=== PATIENT | male | born 1960 | race Caucasian/White ===

== ENCOUNTER 2022-11-05 16:57 | Inpatient (IN) | payer MEDICARE, OTHER, SELFPAY ==
[~2022-11-05] VITALS: Ht 185.4 cm; Wt 59.6 kg
[2022-11-05] MEDS ORDERED: ALBUTEROL SULFATE 2.5MG/0.5ML INH NEB SOLN INH ONE (17:15)
[2022-11-05] MEDS ORDERED: IPRATROPIUM 0.5MG/ALBUTEROL 2.5MG INH SOL UD 3ML (DUONEB) NEB ONE (17:15)
[2022-11-05] MEDS ORDERED: methylPREDNISolone 125MG 2ML VIAL IV ONE (17:15)
[2022-11-05 17:25] LABS: ABG BASE EXCESS -0.4 (-2.0-2.0); ABG HCO3 23.2 MMOL/L (22.0-26.0); ABG O2 SATURATION 96.3 % (95.0-99.0); ABG PARTIAL PRESSURE CO2 34.9 mmHg (35.0-45.0); ABG PARTIAL PRESSURE O2 84.5 mmHg (75.0-100.0); ABG STANDARD HCO3 24.1 MMOL/L. (22.0-26.0); ABG TOTAL CO2 24.2 MMOL/L (23.0-31.0)
[2022-11-05] MEDS: MAG SULF 1GM/100ML (MAG RUN) 1 GM in IV 1 EA IV SCH ×2 (17:37→18:14)
[2022-11-05 17:51] LABS: BASO % 0.3 % (0.0-1.0); EOS # 0.1 10^3/uL (0.0-0.5); EOS % 0.3 % (0.0-3.0); HEMATOCRIT 38.3 % (42.0-52.0); HEMOGLOBIN 12.4 g/dl (13.5-17.5); LYMPH % 6.5 % (24.0-44.0); MEAN CORPUSCULAR HEMOGLOBIN 28.8 pg (27.0-33.0); MEAN CORPUSCULAR HGB CONC 32.4 g/dl (32.0-36.5); MEAN CORPUSCULAR VOLUME 88.9 fl (80.0-96.0); MONO % 6.3 % (2.0-8.0); NEUTROPHILS # 13.7 10^3/uL (1.5-8.5); NEUTROPHILS % 86.2 % (36.0-66.0); PLATELET COUNT, AUTOMATED 346 10^3/uL (150-450); RED BLOOD COUNT 4.31 10^6/uL (4.30-6.10); WHITE BLOOD COUNT 15.9 10^3/uL (4.0-10.0)
[2022-11-05 18:04] LABS: CK-MB VALUE MASS 1.1 NG/ML (<3.6)
[2022-11-05 18:07] LABS: ALBUMIN 3.6 G/DL (3.2-5.2); ALKALINE PHOSPHATASE 114 U/L (46-116); ALT/SGPT 10 U/L (7.0-40); AST/SGOT 10 U/L (<34); BILIRUBIN,DIRECT 0.2 MG/DL (<0.4); BILIRUBIN,TOTAL 0.6 MG/DL (0.3-1.2); BLOOD UREA NITROGEN 8 MG/DL (9-23); CALCIUM LEVEL 9.1 MG/DL (8.3-10.6); CARBON DIOXIDE LEVEL 25 MMOL/L (20-31); CHLORIDE LEVEL 95 MMOL/L (98-107); CPK CREATINE PHOSPHOKINASE 34 U/L (46-171); CREATININE FOR GFR 0.61 MG/DL (0.70-1.30); GLOMERULAR FILTRATION RATE > 60.0 (>49); GLUCOSE, FASTING 128 MG/DL (74-106); MB/CK RELATIVE INDEX 3.23 (< OR =4); POTASSIUM SERUM 3.8 MMOL/L (3.5-5.1); SODIUM LEVEL 131 MMOL/L (136-145); TOTAL PROTEIN 6.7 G/DL (5.7-8.2)
[2022-11-05 18:09] LABS: THYROID STIMULATING HORMONE 0.103 uIU/ML (0.55-4.78); THYROXINE (T4) 11.8 UG/DL (4.5-10.9)
[2022-11-05 18:13] LABS: PROCALCITONIN 0.62 ng/ml
[2022-11-05] MEDS ORDERED: NS 2,050 ML in IV 1 EA IV ONE (18:25)
[2022-11-05] MEDS ORDERED: cefTRIAXone SOD 2 GM in D5W MINI-BAG PLUS 50 ML IV ONE (18:25)
[2022-11-05 18:32] LABS: INR 1.03; PROTHROMBIN TIME 13.7 SECONDS (12.5-14.5)
[2022-11-05] MEDS ORDERED: IPRATROPIUM 0.5MG/ALBUTEROL 2.5MG INH SOL UD 3ML (DUONEB) NEB PRN (20:05)
[2022-11-05] MEDS ORDERED: PANT20TA6 PO (20:28)
[2022-11-05] MEDS ORDERED: TRAZ1TAB14 PO (20:28)
[2022-11-05] MEDS ORDERED: METO25TA4 PO (20:28)
[2022-11-05] MEDS ORDERED: ALBU8.5H INH (20:28)
[2022-11-05] MEDS ORDERED: BREO1INH PO (20:28)
[2022-11-05] MEDS ORDERED: MELA3TAB30 PO (20:28)
[2022-11-05] MEDS ORDERED: LISI10TA22 PO (20:28)
[2022-11-05] MEDS ORDERED: HOME MED LIST COMPLETE! XX SCH (20:30)
[2022-11-05 21:33] VITALS: BP 131/82; TEMP 98.1; O2SAT 94
[2022-11-05 22:07] LABS: MB/CK RELATIVE INDEX 2.63 (< OR =4)
[2022-11-05] MEDS: DOXYCYCLINE HYCLATE 100MG TABLET PO SCH (22:10)
[2022-11-05] MEDS: RAMELTEON 8 MG TAB (ROZEREM) PO PRN (22:11)
[2022-11-05] MEDS: methylPREDNISolone 40MG 1ML VIAL IV SCH (22:11)
[2022-11-05 22:15] VITALS: O2SAT 93
[2022-11-06] VITALS (7 sets, daily range): BP systolic 111–149; BP diastolic 68–83; TEMP 97.5–99; O2SAT 88–95
[2022-11-06] MEDS: IPRATROPIUM 0.5MG/ALBUTEROL 2.5MG INH SOL UD 3ML (DUONEB) NEB SCH ×4 (01:01→19:35)
[2022-11-06] MEDS: methylPREDNISolone 40MG 1ML VIAL IV SCH ×4 (05:14→23:08)
[2022-11-06] MEDS ORDERED: HEPARIN SOD (PORCINE) 5000UNITS/ML 1ML VIAL/SYRINGE SC SCH (06:00)
[2022-11-06 06:28] LABS: BLOOD UREA NITROGEN 8 MG/DL (9-23); CALCIUM LEVEL 8.3 MG/DL (8.3-10.6); CARBON DIOXIDE LEVEL 26 MMOL/L (20-31); CHLORIDE LEVEL 98 MMOL/L (98-107); CREATININE FOR GFR 0.41 MG/DL (0.70-1.30); GLOMERULAR FILTRATION RATE > 60.0 (>49); GLUCOSE, FASTING 181 MG/DL (74-106); POTASSIUM SERUM 3.6 MMOL/L (3.5-5.1); SODIUM LEVEL 132 MMOL/L (136-145)
[2022-11-06] MEDS: SYMBICORT 160/4.5MCG INHALER 6GM INH SCH ×2 (07:11→19:36)
[2022-11-06] MEDS: PANTOPRAZOLE 20 MG TAB PO SCH (08:00)
[2022-11-06] MEDS: SODIUM CHLORIDE HYPERTONIC 3% 4ML NEB SOL INH SCH ×2 (08:00→13:19)
[2022-11-06] MEDS: ATORVASTATIN 20 MG TAB PO SCH (08:00)
[2022-11-06] MEDS: DOXYCYCLINE HYCLATE 100MG TABLET PO SCH ×2 (08:00→20:57)
[2022-11-06] MEDS: ASPIRIN 81MG ENTERIC TABLET PO SCH (08:00)
[2022-11-06] MEDS: cefTRIAXone SOD 1 GM in D5W MINI-BAG PLUS 50 ML IV SCH (17:00)
[2022-11-06] MEDS: RAMELTEON 8 MG TAB (ROZEREM) PO PRN (20:57)
[2022-11-06] MEDS: ENOXAPARIN 40MG/0.4ML SYRINGE (J1650 PER 10MG) SC SCH (20:57)
[2022-11-07] VITALS (9 sets, daily range): BP systolic 111–160; BP diastolic 70–80; TEMP 98.1–98.8; O2SAT 83–96
[2022-11-07] MEDS: IPRATROPIUM 0.5MG/ALBUTEROL 2.5MG INH SOL UD 3ML (DUONEB) NEB SCH ×4 (01:20→21:26)
[2022-11-07] MEDS: SODIUM CHLORIDE HYPERTONIC 3% 4ML NEB SOL INH SCH ×2 (01:20→07:56)
[2022-11-07] MEDS: methylPREDNISolone 40MG 1ML VIAL IV SCH ×4 (05:27→22:35)
[2022-11-07 07:34] LABS: BASO % 0.1 % (0.0-1.0); LYMPH # 0.5 10^3/uL (1.5-5.0); LYMPH % 4.2 % (24.0-44.0); MEAN CORPUSCULAR HGB CONC 33.1 g/dl (32.0-36.5); MEAN CORPUSCULAR VOLUME 87.5 fl (80.0-96.0); MONO # 0.5 10^3/uL (0.0-0.8); MONO % 3.9 % (2.0-8.0); NEUTROPHILS # 11.8 10^3/uL (1.5-8.5); NEUTROPHILS % 90.8 % (36.0-66.0); PLATELET COUNT, AUTOMATED 311 10^3/uL (150-450); RED BLOOD COUNT 3.45 10^6/uL (4.30-6.10)
[2022-11-07 07:35] LABS: HEMATOCRIT 30.2 % (42.0-52.0)
[2022-11-07 07:52] LABS: BLOOD UREA NITROGEN 9 MG/DL (9-23); CALCIUM LEVEL 9.1 MG/DL (8.3-10.6); CARBON DIOXIDE LEVEL 27 MMOL/L (20-31); CHLORIDE LEVEL 97 MMOL/L (98-107); CREATININE FOR GFR 0.45 MG/DL (0.70-1.30); GLOMERULAR FILTRATION RATE > 60.0 (>49); GLUCOSE, FASTING 146 MG/DL (74-106); POTASSIUM SERUM 3.7 MMOL/L (3.5-5.1); SODIUM LEVEL 132 MMOL/L (136-145)
[2022-11-07] MEDS: SYMBICORT 160/4.5MCG INHALER 6GM INH SCH ×2 (07:55→21:26)
[2022-11-07] MEDS: ASPIRIN 81MG ENTERIC TABLET PO SCH (08:46)
[2022-11-07] MEDS: ATORVASTATIN 20 MG TAB PO SCH (08:46)
[2022-11-07] MEDS: PANTOPRAZOLE 20 MG TAB PO SCH (08:47)
[2022-11-07] MEDS: METOPROLOL TART 25 MG TABLET PO SCH (08:47)
[2022-11-07] MEDS: DOXYCYCLINE HYCLATE 100MG TABLET PO SCH ×2 (08:47→20:59)
[2022-11-07] MEDS: cefTRIAXone SOD 1 GM in D5W MINI-BAG PLUS 50 ML IV SCH (17:07)
[2022-11-07] MEDS: ENOXAPARIN 40MG/0.4ML SYRINGE (J1650 PER 10MG) SC SCH (20:59)
[2022-11-07] MEDS ORDERED: traZODone 50 MG TAB PO SCH (21:00)
[2022-11-08 00:30] VITALS: O2SAT 86
[2022-11-08 00:31] VITALS: O2SAT 91
[2022-11-08] MEDS: IPRATROPIUM 0.5MG/ALBUTEROL 2.5MG INH SOL UD 3ML (DUONEB) NEB SCH ×3 (01:29→13:16)
[2022-11-08] MEDS: methylPREDNISolone 40MG 1ML VIAL IV SCH ×3 (05:17→15:50)
[2022-11-08 06:00] VITALS: BP 140/72; TEMP 98.4; O2SAT 91
[2022-11-08] MEDS: SYMBICORT 160/4.5MCG INHALER 6GM INH SCH (07:30)
[2022-11-08 07:35] LABS: BASO % 0.3 % (0.0-1.0); HEMATOCRIT 33.2 % (42.0-52.0); HEMOGLOBIN 10.8 g/dl (13.5-17.5); LYMPH # 0.7 10^3/uL (1.5-5.0); LYMPH % 6.2 % (24.0-44.0); MEAN CORPUSCULAR HEMOGLOBIN 28.6 pg (27.0-33.0); MEAN CORPUSCULAR HGB CONC 32.5 g/dl (32.0-36.5); MEAN CORPUSCULAR VOLUME 87.8 fl (80.0-96.0); MONO # 0.4 10^3/uL (0.0-0.8); MONO % 3.5 % (2.0-8.0); NEUTROPHILS # 9.5 10^3/uL (1.5-8.5); NEUTROPHILS % 87.7 % (36.0-66.0); PLATELET COUNT, AUTOMATED 332 10^3/uL (150-450); RED BLOOD COUNT 3.78 10^6/uL (4.30-6.10); WHITE BLOOD COUNT 10.9 10^3/uL (4.0-10.0)
[2022-11-08 08:03] LABS: BLOOD UREA NITROGEN 11 MG/DL (9-23); CALCIUM LEVEL 9.3 MG/DL (8.3-10.6); CARBON DIOXIDE LEVEL 28 MMOL/L (20-31); CHLORIDE LEVEL 98 MMOL/L (98-107); CREATININE FOR GFR 0.44 MG/DL (0.70-1.30); GLOMERULAR FILTRATION RATE > 60.0 (>49); GLUCOSE, FASTING 130 MG/DL (74-106); MAGNESIUM LEVEL 1.8 MG/DL (1.8-2.4); POTASSIUM SERUM 3.6 MMOL/L (3.5-5.1); SODIUM LEVEL 133 MMOL/L (136-145)
[2022-11-08] MEDS: ATORVASTATIN 20 MG TAB PO SCH (08:05)
[2022-11-08] MEDS: PANTOPRAZOLE 20 MG TAB PO SCH (08:05)
[2022-11-08 08:06] VITALS: BP 140/72
[2022-11-08] MEDS: METOPROLOL TART 25 MG TABLET PO SCH (08:06)
[2022-11-08] MEDS: ASPIRIN 81MG ENTERIC TABLET PO SCH (08:06)
[2022-11-08] MEDS: DOXYCYCLINE HYCLATE 100MG TABLET PO SCH (08:06)
[2022-11-08] MEDS ORDERED: SYMB16INH INH (09:48)
[2022-11-08] MEDS ORDERED: DOXY-444 PO (09:48)
[2022-11-08] MEDS ORDERED: ALBU8.5H INH (09:48)
[2022-11-08] MEDS ORDERED: ASPI81TAEC PO (09:48)
[2022-11-08] MEDS ORDERED: ATOR80TA59 PO (09:48)
[2022-11-08] MEDS ORDERED: PRED10TA2 PO (09:48)
[2022-11-08] MEDS ORDERED: CEFD300CAP PO (09:48)
[2022-11-08 10:00] VITALS: BP 131/96; TEMP 98.6; O2SAT 95
[2022-11-08 14:00] VITALS: BP 113/70; TEMP 98.6; O2SAT 98
[2022-11-08] MEDS: cefTRIAXone SOD 1 GM in D5W MINI-BAG PLUS 50 ML IV SCH (17:03)
[2022-11-10 15:08] LABS: BODY FLUID CULTURE Not indicated. (.); LEGIONELLA ANTIGEN URINE Negative (Negative); ORGANISM ID Not indicated. (.); SPECIMEN SOURCE Urine (.); URINE STREP PNEUMONIAE ANTIGEN Negative (Negative)
== END 2022-11-08 17:16 | disposition home or self-care (01) | DRG 871 ==
LOC: EDBD 16:57 → M ED 16:57 → M ED INP 20:18 → M MSPAV 21:21
PROVIDERS: ADMIT Internal Medicine; ATTEND Internal Medicine
PROC: B246ZZZ Ultrasonography of Right and Left Heart (ICD-10-PCS; principal; 2022-11-08)
DX: A41.9 Sepsis, unspecified organism (principal); J96.01 Acute respiratory failure with hypoxia; J15.6 Pneumonia due to other Gram-negative bacteria; E87.1 Hypo-osmolality and hyponatremia; J44.1 Chronic obstructive pulmonary disease with (acute) exacerbation; J44.0 Chronic obstructive pulmonary disease with (acute) lower respiratory infection; E87.20 Acidosis, unspecified; I69.354 Hemiplegia and hemiparesis following cerebral infarction affecting left non-dominant side; F17.210 Nicotine dependence, cigarettes, uncomplicated; I10 Essential (primary) hypertension; Z96.642 Presence of left artificial hip joint; R65.20 Severe sepsis without septic shock; G47.00 Insomnia, unspecified; E05.90 Thyrotoxicosis, unspecified without thyrotoxic crisis or storm; Z79.899 Other long term (current) drug therapy; Z88.5 Allergy status to narcotic agent; Z88.6 Allergy status to analgesic agent

== ENCOUNTER 2022-12-09 13:58 | Observation (INO) | payer MEDICARE ==
[~2022-12-09] VITALS: Ht 182.9 cm; Wt 58.3 kg
[~2022-12-09 13:58] MED LIST: ALBU8.5H INH; ASPI81TAEC PO; ATOR80TA59 PO; BREO1INH PO; CEFD300CAP PO; DOXY-444 PO; LISI10TA22 PO; MELA3TAB30 PO; METO25TA4 PO; PANT20TA6 PO; PRED10TA2 PO; SYMB16INH INH; TRAZ1TAB14 PO
[2022-12-09 15:07] LABS: BASO % 0.4 % (0.0-1.0); EOS % 0.4 % (0.0-3.0); HEMATOCRIT 33.8 % (42.0-52.0); HEMOGLOBIN 10.7 g/dl (13.5-17.5); LYMPH # 0.9 10^3/uL (1.5-5.0); LYMPH % 7.5 % (24.0-44.0); MEAN CORPUSCULAR HEMOGLOBIN 28.3 pg (27.0-33.0); MEAN CORPUSCULAR HGB CONC 31.7 g/dl (32.0-36.5); MEAN CORPUSCULAR VOLUME 89.4 fl (80.0-96.0); MONO # 0.6 10^3/uL (0.0-0.8); MONO % 5.1 % (2.0-8.0); NEUTROPHILS # 9.6 10^3/uL (1.5-8.5); NEUTROPHILS % 84.6 % (36.0-66.0); PLATELET COUNT, AUTOMATED 371 10^3/uL (150-450); RED BLOOD COUNT 3.78 10^6/uL (4.30-6.10); WHITE BLOOD COUNT 11.4 10^3/uL (4.0-10.0)
[2022-12-09 15:31] LABS: ALBUMIN 3.1 G/DL (3.2-5.2); ALKALINE PHOSPHATASE 98 U/L (46-116); ALT/SGPT 10 U/L (7.0-40); AST/SGOT 10 U/L (<34); BILIRUBIN,DIRECT 0.1 MG/DL (<0.4); BILIRUBIN,TOTAL 0.3 MG/DL (0.3-1.2); BLOOD UREA NITROGEN 9 MG/DL (9-23); CALCIUM LEVEL 9.1 MG/DL (8.3-10.6); CARBON DIOXIDE LEVEL 29 MMOL/L (20-31); CHLORIDE LEVEL 95 MMOL/L (98-107); CREATININE FOR GFR 0.47 MG/DL (0.70-1.30); GLOMERULAR FILTRATION RATE > 60.0 (>49); GLUCOSE, FASTING 122 MG/DL (74-106); POTASSIUM SERUM 3.9 MMOL/L (3.5-5.1); SODIUM LEVEL 133 MMOL/L (136-145); TOTAL PROTEIN 6.5 G/DL (5.7-8.2)
[2022-12-09] MEDS ORDERED: ISOVUE-370 76% 100ML VIAL As Ordered ONE (16:01)
[2022-12-09] MEDS ORDERED: AZITHROMYCIN INJ 500 MG, VIAL MATE ADAPTER 1 EACH in D5W 250 ML IV ONE (17:20)
[2022-12-09] MEDS ORDERED: cefTRIAXone SOD 1 GM in D5W MINI-BAG PLUS 50 ML IV ONE (17:20)
[2022-12-09 17:23] LABS: CK-MB VALUE MASS 1.1 NG/ML (<3.6)
[2022-12-09 17:25] LABS: MB/CK RELATIVE INDEX 3.66 (< OR =4)
[2022-12-09] MEDS ORDERED: IPRATROPIUM 0.5MG/ALBUTEROL 2.5MG INH SOL UD 3ML (DUONEB) NEB PRN (18:05)
[2022-12-09] MEDS ORDERED: MED REC IN PROGRESS XX SCH (18:40)
[2022-12-09] MEDS ORDERED: ATOR80TA59 PO (19:12)
[2022-12-09] MEDS ORDERED: ASPI81TA26 PO (19:12)
[2022-12-09] MEDS ORDERED: HOME MED LIST COMPLETE! XX SCH (20:00)
[2022-12-09] MEDS: IPRATROPIUM 0.5MG/ALBUTEROL 2.5MG INH SOL UD 3ML (DUONEB) NEB SCH ×2 (20:44→23:13)
[2022-12-09] MEDS ORDERED: NICOTINE 14 MG/24 HR TRANSDERMAL TD SCH (21:00)
[2022-12-09 21:14] VITALS: BP 137/84; TEMP 98.1; O2SAT 93
[2022-12-09] MEDS ORDERED: RAMELTEON 8 MG TAB (ROZEREM) PO PRN (21:50)
[2022-12-09] MEDS: methylPREDNISolone 40MG 1ML VIAL IV SCH (21:55)
[2022-12-09] MEDS: guaiFENesin 200 MG TAB PO SCH (23:32)
[2022-12-10] MEDS: IPRATROPIUM 0.5MG/ALBUTEROL 2.5MG INH SOL UD 3ML (DUONEB) NEB SCH ×3 (03:00→11:40)
[2022-12-10] MEDS: guaiFENesin 200 MG TAB PO SCH ×2 (05:32→12:31)
[2022-12-10 05:40] VITALS: BP 124/68; TEMP 96.8; O2SAT 93
[2022-12-10 06:45] LABS: HEMATOCRIT 31.4 % (42.0-52.0); MEAN CORPUSCULAR HGB CONC 31.8 g/dl (32.0-36.5); PLATELET COUNT, AUTOMATED 388 10^3/uL (150-450); RED BLOOD COUNT 3.57 10^6/uL (4.30-6.10); WHITE BLOOD COUNT 10.9 10^3/uL (4.0-10.0)
[2022-12-10 07:11] LABS: BLOOD UREA NITROGEN 6 MG/DL (9-23); CALCIUM LEVEL 9.4 MG/DL (8.3-10.6); CARBON DIOXIDE LEVEL 29 MMOL/L (20-31); CHLORIDE LEVEL 94 MMOL/L (98-107); CREATININE FOR GFR 0.38 MG/DL (0.70-1.30); GLOMERULAR FILTRATION RATE > 60.0 (>49); GLUCOSE, FASTING 162 MG/DL (74-106); MAGNESIUM LEVEL 1.8 MG/DL (1.8-2.4); POTASSIUM SERUM 3.5 MMOL/L (3.5-5.1); SODIUM LEVEL 132 MMOL/L (136-145)
[2022-12-10] MEDS ORDERED: cefTRIAXone SOD 2 GM in D5W MINI-BAG PLUS 50 ML IV SCH (09:00)
[2022-12-10] MEDS ORDERED: AZITHROMYCIN 250MG TABLET PO SCH (09:00)
[2022-12-10] MEDS: methylPREDNISolone 40MG 1ML VIAL IV SCH (09:36)
[2022-12-10] MEDS ORDERED: PRED50TA PO (10:17)
[2022-12-10] MEDS ORDERED: LEVO1TAB40 PO (10:17)
[2022-12-10] MEDS ORDERED: GUAI20TA PO (10:17)
== END 2022-12-10 13:05 | disposition home or self-care (01) ==
LOC: M ED 13:58 → M ED INP 13:59 → ENRESERV 19:58 → M MS4PR 20:54
PROVIDERS: ADMIT Family Medicine; ATTEND Family Medicine
DX: J44.1 Chronic obstructive pulmonary disease with (acute) exacerbation (principal); J18.9 Pneumonia, unspecified organism; J96.21 Acute and chronic respiratory failure with hypoxia; I10 Essential (primary) hypertension; I69.354 Hemiplegia and hemiparesis following cerebral infarction affecting left non-dominant side; Z99.81 Dependence on supplemental oxygen; F17.290 Nicotine dependence, other tobacco product, uncomplicated; Z88.5 Allergy status to narcotic agent; Z88.8 Allergy status to other drugs, medicaments and biological substances; Z79.899 Other long term (current) drug therapy; Z79.51 Long term (current) use of inhaled steroids; Z79.52 Long term (current) use of systemic steroids; Z79.82 Long term (current) use of aspirin
CPT/HCPCS: 36415; 71045; 71275; 80048; 80076; 82550; 82553; 83735; 84484; 85025; 85027; 87486; 87581; 87633; 87798; 93005; 93041; 94640; 94760; 96365; 96367; 96375; 96376; 99285; G0378; J0456; J0696; J2920; Q9967

== ENCOUNTER 2023-10-10 19:28 | Emergency (ER) | payer MEDICARE ==
[~2023-10-10] VITALS: Ht 182.9 cm; Wt 65.8 kg
[~2023-10-10 19:28] MED LIST changes: +ASPI81TA26 PO; +DOXY-440 PO; -DOXY-444 PO; +GUAI20TA PO; +LEVO1TAB40 PO; +PRED50TA PO
[2023-10-10 20:30] LABS: BASO % 0.5 % (0.0-1.0); EOS # 0.1 10^3/uL (0.0-0.5); EOS % 0.9 % (0.0-3.0); HEMOGLOBIN 13.3 g/dl (13.5-17.5); LYMPH # 1.5 10^3/uL (1.5-5.0); LYMPH % 17.2 % (24.0-44.0); MEAN CORPUSCULAR HEMOGLOBIN 31.1 pg (27.0-33.0); MEAN CORPUSCULAR HGB CONC 34.1 g/dl (32.0-36.5); MEAN CORPUSCULAR VOLUME 91.3 fl (80.0-96.0); MONO # 0.8 10^3/uL (0.0-0.8); MONO % 8.8 % (2.0-8.0); NEUTROPHILS # 6.2 10^3/uL (1.5-8.5); NEUTROPHILS % 72.2 % (36.0-66.0); PLATELET COUNT, AUTOMATED 219 10^3/uL (150-450); RED BLOOD COUNT 4.27 10^6/uL (4.30-6.10); WHITE BLOOD COUNT 8.6 10^3/uL (4.0-10.0)
[2023-10-10 21:06] LABS: ALBUMIN 4.3 G/DL (3.2-5.2); ALKALINE PHOSPHATASE 67 U/L (46-116); ALT/SGPT 16 U/L (7.0-40); AST/SGOT 15 U/L (<34); BILIRUBIN,DIRECT 0.2 MG/DL (<0.4); BILIRUBIN,TOTAL 0.5 MG/DL (0.3-1.2); BLOOD UREA NITROGEN 10 MG/DL (9-23); CALCIUM LEVEL 9.7 MG/DL (8.3-10.6); CARBON DIOXIDE LEVEL 29 MMOL/L (20-31); CHLORIDE LEVEL 97 MMOL/L (98-107); CREATININE FOR GFR 0.63 MG/DL (0.70-1.30); GLOMERULAR FILTRATION RATE > 60.0 (>49); GLUCOSE, FASTING 82 MG/DL (74-106); POTASSIUM SERUM 3.7 MMOL/L (3.5-5.1); SODIUM LEVEL 134 MMOL/L (136-145)
[2023-10-10] MEDS: methylPREDNISolone 125MG 2ML VIAL IV ONE (21:06)
[2023-10-10] MEDS: amLODIPine 5 MG TAB PO ONE (21:07)
[2023-10-10] MEDS: ASPIRIN 81MG CHEW TABLET PO ONE (21:07)
[2023-10-10] MEDS: IPRATROPIUM 0.5MG/ALBUTEROL 2.5MG INH SOL UD 3ML (DUONEB) NEB SCH (21:16)
[2023-10-10 22:00] LABS: CK-MB VALUE MASS 2.8 NG/ML (<3.6)
[2023-10-10 22:04] LABS: CPK CREATINE PHOSPHOKINASE 88 U/L (46-171); MB/CK RELATIVE INDEX 3.18 (< OR =4)
[2023-10-10 23:07] LABS: CK-MB VALUE MASS 2.6 NG/ML (<3.6)
[2023-10-10 23:08] LABS: MB/CK RELATIVE INDEX 3.61 (< OR =4)
[2023-10-11] VITALS: BP 135/70; TEMP 98; O2SAT 100
[2023-10-11] MEDS ORDERED: PRED20TA PO (00:17)
[2023-10-11] MEDS: ALBUTEROL 90 MCG/ACT 8GM HFA INHALER INH ONE (00:24)
== END 2023-10-11 01:34 | disposition home or self-care (01) ==
LOC: M ED 19:28
DX: J44.1 Chronic obstructive pulmonary disease with (acute) exacerbation (principal); I10 Essential (primary) hypertension; Z86.73 Personal history of transient ischemic attack (TIA), and cerebral infarction without residual deficits; F17.200 Nicotine dependence, unspecified, uncomplicated; Z79.82 Long term (current) use of aspirin; Z79.899 Other long term (current) drug therapy; Z88.6 Allergy status to analgesic agent; Z88.5 Allergy status to narcotic agent
CPT/HCPCS: 71045; 80048; 80076; 82550; 82553; 84484; 85025; 93005; 93041; 94640; 94760; 96374; 99285; J2919

== ENCOUNTER 2025-02-08 05:05 | Emergency (ER) | payer MEDICARE ==
[~2025-02-08] VITALS: Ht 182.9 cm; Wt 140.0 kg
[~2025-02-08 05:05] MED LIST changes: +PRED20TA PO; -PRED50TA PO; +PRED50TA57 PO
[2025-02-08 05:20] VITALS: TEMP 98
[2025-02-08 06:27] LABS: BASO # 0.0 10^3/uL (0.0-0.2); BASO % 0.5 % (0.0-1.0); EOS # 0.0 10^3/uL (0.0-0.5); EOS % 0.4 % (0.0-3.0); LYMPH # 0.8 10^3/uL (1.5-5.0); LYMPH % 11.0 % (24.0-44.0); MONO # 0.6 10^3/uL (0.0-0.8); MONO % 8.1 % (2.0-8.0); NEUTROPHILS # 6.1 10^3/uL (1.5-8.5); NEUTROPHILS % 79.6 % (36.0-66.0); PLATELET COUNT, AUTOMATED 223 10^3/uL (150-450)
[2025-02-08 06:38] LABS: INR 0.85
[2025-02-08 06:51] LABS: CK-MB VALUE MASS 5.3 NG/ML (<3.6)
[2025-02-08 06:55] LABS: ALT/SGPT 17 U/L (7.0-40); AST/SGOT 29 U/L (<34); CALCIUM LEVEL 8.9 MG/DL (8.3-10.6); CARBON DIOXIDE LEVEL 28 MMOL/L (20-31); CHLORIDE LEVEL 92 MMOL/L (98-107); CPK CREATINE PHOSPHOKINASE 95 U/L (46-171); CREATININE FOR GFR 0.55 MG/DL (0.70-1.30); GLOMERULAR FILTRATION RATE > 90.0 (>49); MB/CK RELATIVE INDEX 5.57 (< OR =4); POTASSIUM SERUM 3.7 MMOL/L (3.5-5.1); SODIUM LEVEL 130 MMOL/L (136-145)
[2025-02-08] MEDS: PERCOCET 5MG/325MG TAB PO ONE (07:57)
[2025-02-08 09:16] VITALS: BP 213/112
[2025-02-08] MEDS: amLODIPine 5 MG TAB PO ONE (09:16)
[2025-02-08] MEDS ORDERED: ASPI81TA26 PO (09:39)
[2025-02-08] MEDS ORDERED: NORV5TAB PO (09:39)
[2025-02-08 09:45] VITALS: BP 151/71; O2SAT 97
== END 2025-02-08 10:11 | disposition home or self-care (01) ==
LOC: M ED 05:05
DX: I10 Essential (primary) hypertension (principal); S70.02XA Contusion of left hip, initial encounter; W19.XXXA Unspecified fall, initial encounter; Y92.9 Unspecified place or not applicable; Y93.89 Activity, other specified; Y99.9 Unspecified external cause status; J44.9 Chronic obstructive pulmonary disease, unspecified; Z91.199 Patient's noncompliance with other medical treatment and regimen due to unspecified reason; Z86.73 Personal history of transient ischemic attack (TIA), and cerebral infarction without residual deficits; Z96.642 Presence of left artificial hip joint; Z79.899 Other long term (current) drug therapy; Z88.5 Allergy status to narcotic agent

== ENCOUNTER 2025-03-22 15:43 | Inpatient (IN) | payer MEDICARE ==
[~2025-03-22] VITALS: Ht 185.4 cm; Wt 88.9 kg
[~2025-03-22 15:43] MED LIST changes: +NORV5TAB PO
[2025-03-22] MEDS ORDERED: KETOROLAC 30 MG/ML 1 ML VIAL IM ONE (16:00)
[2025-03-22] MEDS: KETOROLAC 30 MG/ML 1 ML VIAL IV ONE (16:05)
[2025-03-22] MEDS: amLODIPine 5 MG TAB PO ONE (17:00)
[2025-03-22 17:56] LABS: BASO # 0.0 10^3/uL (0.0-0.2); BASO % 0.4 % (0.0-1.0); EOS # 0.0 10^3/uL (0.0-0.5); EOS % 0.4 % (0.0-3.0); LYMPH # 0.9 10^3/uL (1.5-5.0); LYMPH % 12.4 % (24.0-44.0); MONO # 0.7 10^3/uL (0.0-0.8); MONO % 8.6 % (2.0-8.0); NEUTROPHILS # 5.9 10^3/uL (1.5-8.5); NEUTROPHILS % 77.9 % (36.0-66.0); PLATELET COUNT, AUTOMATED 242 10^3/uL (150-450)
[2025-03-22 18:20] LABS: CALCIUM LEVEL 8.9 MG/DL (8.3-10.6); CARBON DIOXIDE LEVEL 31 MMOL/L (20-31); CHLORIDE LEVEL 92 MMOL/L (98-107); CREATININE FOR GFR 0.84 MG/DL (0.70-1.30); GLOMERULAR FILTRATION RATE > 90.0 (>49); POTASSIUM SERUM 3.5 MMOL/L (3.5-5.1); SODIUM LEVEL 133 MMOL/L (136-145)
[2025-03-22] MEDS ORDERED: ONDANSETRON 4MG/2ML VIAL IV PRN (21:20)
[2025-03-22] MEDS ORDERED: MOM 30 ML SUSPENSION UDC PO PRN (21:20)
[2025-03-22] MEDS ORDERED: ACETAMINOPHEN 325 MG TAB PO PRN (21:20)
[2025-03-22] MEDS ORDERED: IPRATROPIUM 0.5 MG/ALBUTEROL 2.5 MG INH SOL UD 3 ML NEB PRN (23:25)
[2025-03-23] MEDS ORDERED: AMLO1TAB24 PO (01:20)
[2025-03-23] MEDS ORDERED: VENTAER INH (01:20)
[2025-03-23] MEDS ORDERED: IBUP200C25 PO (01:23)
[2025-03-23] MEDS ORDERED: HOME MED LIST COMPLETE! XX SCH (01:25)
[2025-03-23] MEDS: PANTOPRAZOLE 40MG TAB PO SCH (07:47)
[2025-03-23] MEDS: ASPIRIN 81 MG ENTERIC TABLET PO SCH (07:47)
[2025-03-23] MEDS: ENOXAPARIN 40 MG/0.4 ML SYRINGE (J1650 PER 10MG) SC SCH (07:48)
[2025-03-23] MEDS: ATORVASTATIN 20 MG TAB PO SCH (07:48)
[2025-03-23] MEDS: amLODIPine 5 MG TAB PO SCH (07:48)
[2025-03-23] MEDS ORDERED: ASPIRIN 81 MG ENTERIC TABLET PO SCH (09:00)
[2025-03-23] MEDS ORDERED: amLODIPine 5 MG TAB PO SCH (09:00)
[2025-03-23] MEDS ORDERED: ALBUTEROL 90 MCG/ACT 8 GM HFA INHALER INH PRN (10:15)
[2025-03-23] MEDS ORDERED: ALBUTEROL SULFATE 2.5 MG/0.5 ML INH CONCENTRATE NEB SOLN NEB PRN (10:15)
[2025-03-23] MEDS: IPRATROPIUM 0.5 MG/ALBUTEROL 2.5 MG INH SOL UD 3 ML NEB ONE (10:50)
[2025-03-23 11:01] LABS: BASO # 0.0 10^3/uL (0.0-0.2); BASO % 0.5 % (0.0-1.0); EOS # 0.0 10^3/uL (0.0-0.5); EOS % 0.5 % (0.0-3.0); LYMPH # 0.9 10^3/uL (1.5-5.0); LYMPH % 14.2 % (24.0-44.0); MONO # 0.6 10^3/uL (0.0-0.8); MONO % 9.8 % (2.0-8.0); NEUTROPHILS # 4.7 10^3/uL (1.5-8.5); NEUTROPHILS % 74.8 % (36.0-66.0); PLATELET COUNT, AUTOMATED 232 10^3/uL (150-450)
[2025-03-23 11:40] LABS: ALT/SGPT 25 U/L (7.0-40); AST/SGOT 35 U/L (<34); CALCIUM LEVEL 8.6 MG/DL (8.3-10.6); CARBON DIOXIDE LEVEL 33 MMOL/L (20-31); CHLORIDE LEVEL 90 MMOL/L (98-107); CREATININE FOR GFR 0.66 MG/DL (0.70-1.30); GLOMERULAR FILTRATION RATE > 90.0 (>49); MAGNESIUM LEVEL 1.8 MG/DL (1.8-2.4); POTASSIUM SERUM 4.4 MMOL/L (3.5-5.1); SODIUM LEVEL 129 MMOL/L (136-145)
[2025-03-23] MEDS: IPRATROPIUM 0.5 MG/ALBUTEROL 2.5 MG INH SOL UD 3 ML NEB SCH (14:53)
[2025-03-23] MEDS: DOXYCYCLINE HYCLATE 100 MG TABLET PO SCH (17:14)
[2025-03-23] MEDS: **hydrALAZINE** 10 MG TAB PO PRN (18:11)
[2025-03-23 18:28] VITALS: BP 178/76; TEMP 97.7; O2SAT 98
[2025-03-23] MEDS: BUDESONIDE 0.25 MG/2 ML INHALATION SUSPENSION INH SCH (19:23)
[2025-03-23] MEDS: DICLOFENAC EPOLAMINE 1.3% PATCH TOP SCH (21:46)
[2025-03-23 21:57] VITALS: BP 154/73; TEMP 97.6; O2SAT 95
[2025-03-24 04:51] VITALS: BP 157/77; TEMP 97.9; O2SAT 90
[2025-03-24 06:46] LABS: PLATELET COUNT, AUTOMATED 238 10^3/uL (150-450)
[2025-03-24 07:10] LABS: MAGNESIUM LEVEL 1.7 MG/DL (1.8-2.4); PHOSPHORUS LEVEL 3.1 MG/DL (2.4-5.1)
[2025-03-24 07:14] LABS: CALCIUM LEVEL 8.6 MG/DL (8.3-10.6); CARBON DIOXIDE LEVEL 31 MMOL/L (20-31); CHLORIDE LEVEL 91 MMOL/L (98-107); CREATININE FOR GFR 0.62 MG/DL (0.70-1.30); GLOMERULAR FILTRATION RATE > 90.0 (>49); POTASSIUM SERUM 4.0 MMOL/L (3.5-5.1); SODIUM LEVEL 132 MMOL/L (136-145)
[2025-03-24 12:00] VITALS: BP 151/72; TEMP 97.5; O2SAT 100
[2025-03-24] MEDS: IBUPROFEN 200 MG TAB PO PRN (16:50)
[2025-03-24 20:00] VITALS: BP 126/67; TEMP 97.6; O2SAT 94
[2025-03-25 04:00] VITALS: BP 168/88; TEMP 98.2; O2SAT 93
[2025-03-25 06:31] LABS: PLATELET COUNT, AUTOMATED 250 10^3/uL (150-450)
[2025-03-25 07:02] LABS: CALCIUM LEVEL 8.9 MG/DL (8.3-10.6); CARBON DIOXIDE LEVEL 32 MMOL/L (20-31); CHLORIDE LEVEL 91 MMOL/L (98-107); CREATININE FOR GFR 0.57 MG/DL (0.70-1.30); GLOMERULAR FILTRATION RATE > 90.0 (>49); POTASSIUM SERUM 3.8 MMOL/L (3.5-5.1); SODIUM LEVEL 134 MMOL/L (136-145)
[2025-03-25 12:00] VITALS: BP 171/78; TEMP 98.2; O2SAT 100
[2025-03-25 20:00] VITALS: BP_SYST 137; BP_SYST 154; BP_DIAS 70; BP_DIAS 75; TEMP 98.4; TEMP 98.6; O2SAT 95; O2SAT 96
[2025-03-25] MEDS: MAGNESIUM OXIDE 400 MG TAB PO SCH (20:19)
[2025-03-25] MEDS: amLODIPine 5 MG TAB PO ONE (20:31)
[2025-03-25 21:35] LABS: IRON (FE) 40.0 UG/DL (65-175); PERCENT SATURATION 12.5 % (19.7-50.0)
[2025-03-26 04:00] VITALS: BP 149/80; TEMP 97.8; O2SAT 92
[2025-03-26 04:28] LABS: CALCIUM LEVEL 9.2 MG/DL (8.3-10.6); CARBON DIOXIDE LEVEL 33 MMOL/L (20-31); CHLORIDE LEVEL 92 MMOL/L (98-107); CREATININE FOR GFR 0.61 MG/DL (0.70-1.30); GLOMERULAR FILTRATION RATE > 90.0 (>49); MAGNESIUM LEVEL 1.7 MG/DL (1.8-2.4); POTASSIUM SERUM 4.0 MMOL/L (3.5-5.1); SODIUM LEVEL 135 MMOL/L (136-145)
[2025-03-26 04:31] LABS: VITAMIN B12 LEVEL 428 PG/ML (211-911)
[2025-03-26 08:38] VITALS: BP 148/72
[2025-03-26] MEDS: amLODIPine 10 MG TAB PO SCH (08:38)
[2025-03-26] MEDS: MAG SULF 1GM/100ML (MAG RUN) 1 GM in IV 1 EA IV SCH (08:41)
[2025-03-26] MEDS ORDERED: AMLO1TAB25 PO (10:09)
[2025-03-26] MEDS ORDERED: DOXY100T PO (10:09)
[2025-03-26] MEDS ORDERED: LISI20TA33 PO (10:10)
[2025-03-26] MEDS ORDERED: ACET-1593 PO (10:10)
[2025-03-26] MEDS ORDERED: PRED10TA2 PO (10:10)
[2025-03-26] MEDS ORDERED: VENTAER INH (10:10)
[2025-03-26] MEDS ORDERED: TIOT18INH INH (10:10)
[2025-03-26] MEDS ORDERED: MAGN400T33 PO (10:10)
[2025-03-26] MEDS ORDERED: BUDE90AE INH (10:10)
[2025-03-26] MEDS ORDERED: QVAR80AE8 INH (11:04)
[2025-03-26] MEDS ORDERED: ARNU1INH3 PO (11:53)
[2025-03-26] MEDS ORDERED: INCR1INH INH (11:53)
[2025-03-26 12:00] VITALS: BP 156/76; TEMP 99.2; O2SAT 98
[2025-03-28] MEDS ORDERED: predniSONE 10 MG TAB PO SCH (09:00)
== END 2025-03-26 14:16 | disposition home health service (06) | DRG 191 ==
LOC: EDBD 15:43 → M ED 15:43 → M ED INP 03-23 16:03 → M MSPAV 03-23 18:25
PROVIDERS: ADMIT Student in an Organized Health Care Education/Training Program; ATTEND General Practice
PROC: B246ZZZ Ultrasonography of Right and Left Heart (ICD-10-PCS; principal; 2025-03-24)
DX: J44.1 Chronic obstructive pulmonary disease with (acute) exacerbation (principal); I69.354 Hemiplegia and hemiparesis following cerebral infarction affecting left non-dominant side; E87.1 Hypo-osmolality and hyponatremia; E87.3 Alkalosis; J98.11 Atelectasis; Z96.642 Presence of left artificial hip joint; I10 Essential (primary) hypertension; F17.290 Nicotine dependence, other tobacco product, uncomplicated; Z79.82 Long term (current) use of aspirin; Z79.51 Long term (current) use of inhaled steroids; Z79.52 Long term (current) use of systemic steroids; Z79.899 Other long term (current) drug therapy; Z88.5 Allergy status to narcotic agent; L89.221 Pressure ulcer of left hip, stage 1; W19.XXXA Unspecified fall, initial encounter; Y92.009 Unspecified place in unspecified non-institutional (private) residence as the place of occurrence of the external cause; M25.551 Pain in right hip; M25.552 Pain in left hip; E83.42 Hypomagnesemia; D64.9 Anemia, unspecified; M51.26 Other intervertebral disc displacement, lumbar region; M19.90 Unspecified osteoarthritis, unspecified site; M48.061 Spinal stenosis, lumbar region without neurogenic claudication